=== PATIENT | female | born 1965 | race Caucasian/White ===

== ENCOUNTER → 2021-04-15 | Outpatient (CLI) | payer OTHER | LOC: KOH-I 12:24 | DX: M54.42 Lumbago with sciatica, left side (principal); M47.816 Spondylosis without myelopathy or radiculopathy, lumbar region | CPT/HCPCS: 72100 ==

== ENCOUNTER 2021-05-29 14:08 | Emergency (ER) | payer OTHER | END 2021-05-29 17:20 | disposition home or self-care (01) | LOC: ER1 14:08 | DX: U07.1 COVID-19 (principal); E78.5 Hyperlipidemia, unspecified; F17.200 Nicotine dependence, unspecified, uncomplicated; Z88.8 Allergy status to other drugs, medicaments and biological substances | CPT/HCPCS: 0240U; 99283 ==

== ENCOUNTER 2021-05-31 12:33 | Emergency (ER) | payer OTHER ==
[~2021-05-31] VITALS: Ht 157.5 cm; Wt 81.2 kg
== END 2021-05-31 16:43 | disposition home or self-care (01) ==
LOC: ER1 12:33
DX: U07.1 COVID-19 (principal); Z23 Encounter for immunization; Z88.8 Allergy status to other drugs, medicaments and biological substances
CPT/HCPCS: 99283; M0245

== ENCOUNTER → 2021-08-10 | Outpatient (CLI) | payer OTHER | LOC: KOH-I 13:28 | DX: M25.552 Pain in left hip (principal); M25.551 Pain in right hip; M86.9 Osteomyelitis, unspecified | CPT/HCPCS: 73522 ==

== ENCOUNTER → 2021-09-27 | Outpatient (CLI) | payer OTHER | LOC: KOH-I 09:49 | DX: Z53.9 Procedure and treatment not carried out, unspecified reason (principal) | CPT/HCPCS: 73721 ==

== ENCOUNTER → 2022-02-06 | Outpatient (CLI) | payer OTHER | LOC: KOH-I 15:49 | DX: M54.50 Low back pain, unspecified (principal); M47.816 Spondylosis without myelopathy or radiculopathy, lumbar region | CPT/HCPCS: 72100 ==

== ENCOUNTER 2022-03-18 16:58 | Emergency (ER) | payer OTHER ==
[2022-03-18] MEDS ORDERED: CYCLOBENZAPRINE10 MG PO (18:52)
== END 2022-03-18 19:07 | disposition home or self-care (01) ==
LOC: ER1 16:58
DX: S16.1XXA Strain of muscle, fascia and tendon at neck level, initial encounter (principal); S70.02XA Contusion of left hip, initial encounter; M54.6 Pain in thoracic spine; M54.50 Low back pain, unspecified; R40.2410 Glasgow coma scale score 13-15, unspecified time; Z88.8 Allergy status to other drugs, medicaments and biological substances; V89.2XXA Person injured in unspecified motor-vehicle accident, traffic, initial encounter; Y92.410 Unspecified street and highway as the place of occurrence of the external cause
CPT/HCPCS: 70450; 71045; 72125; 72128; 72131; 72192; 99284